=== PATIENT | male | born 1950 | race Caucasian/White ===

== ENCOUNTER → 2020-06-22 | Outpatient (CLI) | payer MEDICARE ==
--- NOTE | 2020-06-22 16:53 | RAD ---
3 view study of both feet Clinical indications: Bilateral foot pain Right foot: No acute fracture or dislocation or lytic process is seen. Alignment is normal. No periosteal reaction is seen. There is mild primary degenerative osteoarthritis of the first metatarsal phalangeal joint. No plantar spur of the calcaneus is seen. Left foot: No acute fracture or dislocation or lytic process is seen. Alignment is normal. No periosteal reaction is evident. There is mild primary degenerative osteoarthritis of the first metatarsal-phalangeal joint and the first tarsal metatarsal joint. No plantar spur of the calcaneus is seen. IMPRESSION: No acute osseous abnormality. Mild primary degenerative osteoarthritis. Electronically signed by: Shakeel Gauthier MD (06/22/2020 4:51 PM) [id number]
== END | disposition home or self-care (01) ==
LOC: DXRAD 10:37
PROVIDERS: ATTEND Podiatrist Foot & Ankle Surgery
DX: M19.072 Primary osteoarthritis, left ankle and foot (principal); M19.071 Primary osteoarthritis, right ankle and foot; M25.879 Other specified joint disorders, unspecified ankle and foot
CPT/HCPCS: 73630